=== PATIENT | male | born 1985 | race Caucasian/White ===

== ENCOUNTER 2019-05-14 11:27 | Day surgery (SDC) | payer MEDICAID ==
[~2019-05-14 11:27] MED LIST: Lidocaine 1% with EPINEPHrine 1:100,000 50 ML MDV ONE; Midazolam 1 MG/ML 2 ML SDV ONE; Propofol 200 MG/20 ML SDV ONE; Sodium Chloride 0.9% 10 ML ONE; Sodium Tetradecyl Sulfate 1% 20 MG/2 ML SDV ONE; fentaNYL 100 MCG/2 ML SDV ONE
[2019-05-14] MEDS ORDERED: Sodium Chloride 0.9% 1,000 ML IV SCH (12:15)
[2019-05-14] MEDS ORDERED: Lidocaine 1% w/EPINEPHrine 50 ML, Sodium Bicarbonate 5 MEQ in Sodium Chloride 0.9% 950 ML INJECT ONE ×2 (12:30→13:30)
[2019-05-14] MEDS ORDERED: Propofol 200 MG/20 ML SDV ONE ×3 (12:53→13:24)
[2019-05-14] MEDS ORDERED: Sodium Chloride 0.9% 10 ML SDV ONE (13:10)
[2019-05-14] MEDS ORDERED: Lactated Ringers 1,000 ML ONE (13:30)
[2019-05-14] MEDS ORDERED: Acetaminophen/HYDROcodone 325-5 MG Tab PO ONE (14:10)
[2019-05-14 14:38] VITALS: BP 132/74; PULSE 71
--- NOTE | 2019-05-14 19:17 | OR ---
DATE OF PROCEDURE: 05/14/2019 SURGEON: Chuy Arriaga MD PROCEDURE PERFORMED: 1. Radiofrequency ablation of left greater saphenous vein. 2. Radiofrequency ablation of right greater saphenous vein. 3. Sclerotherapy, right leg, multiple. 4. Sclerotherapy, left leg, multiple. 5. Compression wrap, left leg (90413). 6. Compression wrap, right leg (31052). COMPLICATIONS: None. ORDER ENTRY CLERK: None. ANESTHESIA: MAC. PREPROCEDURE DIAGNOSIS: Venous insufficiency. POSTPROCEDURE DIAGNOSIS: Venous insufficiency. RISKS: Risks, benefits, alternatives, and limitations including, but not limited to, infection, bleeding, DVT formation, chronic wounds, neuropathy, chronic pain were also explained to the patient who wished to proceed. PROCEDURE IN DETAIL: The patient was placed in supine position. The left GSV was identified and addressed first. This was accessed at the level of the ankle using a 21- gauge needle, then exchanged for a 35,000th wire and then exchanged for a 7-Romanian sheath. RFA probe was advanced to 7 cm from saphenofemoral junction. Tumescent fluid was injected in a 1-cm jacket around this. This was verified a second and a third time. Direct even pressure was then held as the probe was deployed x2 proximally and distally and x1 in all other segments. The right leg was then performed in the same manner, same fashion, same technique, and in the same sequence using the same equipment. This was also verified a second and a third time. Direct pressure was held, stitches were placed in the left and right legs. Sclerotherapy was then performed of the left and right legs using 0.33% sodium tetradecyl. This was always drawn back to ensure intravascular injection only. Six on the right and 7 on the left. No more than 2 mL was injected in one location. Two-layer two-stage compression wrapping was then performed in a [id number] gradient using 20 mmHg pressure. The patient tolerated the procedure well. Chuy Arriaga MD /[id number]
== END 2019-05-14 15:00 | disposition home or self-care (01) ==
LOC: JP.SDS 11:27
PROVIDERS: ATTEND Surgery
DX: I83.12 Varicose veins of left lower extremity with inflammation (principal); I83.11 Varicose veins of right lower extremity with inflammation; I83.813 Varicose veins of bilateral lower extremities with pain; E66.9 Obesity, unspecified; Z68.36 Body mass index [BMI] 36.0-36.9, adult; Z87.891 Personal history of nicotine dependence
CPT/HCPCS: 36470; 36475; A9270; J1642; J2250; J2704; J3010; J7030; J7120; J3490